=== PATIENT | female | born 1965 | race African-American/Black ===

== ENCOUNTER 2018-06-10 15:07 | Outpatient (CLI) | payer MEDICARE, MEDICAID | END 2018-06-10 15:08 | disposition home or self-care (01) | LOC: BICULT 15:07 | PROVIDERS: ATTEND Family Medicine | DX: E04.2 Nontoxic multinodular goiter (principal) | CPT/HCPCS: 76536 ==

== ENCOUNTER 2020-12-30 13:32 | Emergency (ER) | payer MEDICARE, MEDICAID ==
[2020-12-30 14:09] LABS: Hemoglobin 11.4 g/dL (12.0-16.0); Mean Corpuscular HGB CONC 32.4 g/dL (32.0-36.0); Mean Corpuscular Hemoglobin 25.5 pg (27.0-31.0); Mean Corpuscular Volume 78.6 fL (78.0-98.0); Mean Platelet Volume 10.1 fL (7.4-10.4); Platelet Count 185 thou/uL (130-400); RBC Distribution Width 14.8 % (11.5-14.5); Red Blood Cell (RBC) Count 4.48 mill/uL (4.20-5.40); White Blood Cell (WBC) Count 28.7 thou/uL (4.8-10.8)
[2020-12-30 14:23] LABS: Band 21 % (5-11); Hypochromia SLIGHT = 6-15 cells (100X) (0-5/hpf); Lymphocytes 3 % (21-51); MDiff Complete? YES; Metamyelocyte 6 % (0-0); Monocytes 3 % (0-10); Myelocyte 2 % (0-0); Neutrophil 65 % (42-75); Ovalocytes SLIGHT = 2-5 cells (100X) (0-1/hpf); Platelet Morphology Comment Appears Adequate; Target Cells SLIGHT = 2-5 cells (100X) (0-1/hpf); Vacuoles SLIGHT
--- NOTE | 2020-12-30 14:41 | RAD ---
EXAM: Single view of the chest HISTORY: Fever and vomiting COMPARISON: 11/03/2014 FINDINGS: Single view of the chest shows a normal sized cardiomediastinal silhouette. Increased inte rstitial lung markings are present. There is no evidence of consolidation, mass, or pleural effusion. Hardware and scoliotic curvature is seen in the spine. IMPRESSION: No evidence of acute cardiopulmonary disease
[2020-12-30] MEDS ORDERED: Cefepime 2 GM VIAL ONE (14:42)
[2020-12-30] MEDS ORDERED: Vancomycin 1 GM/200 ML BAG ONE ×3 (14:42→14:43)
[2020-12-30 15:35] LABS: Chloride 108 mmol/L (98-107); Sodium 142 mmol/L (136-145)
[2020-12-30 15:37] LABS: Globulin 3.2 g/dL (2.4-3.5); Glucose 97 mg/dL (70-105); Protein, Total 6.2 g/dL (6.0-8.3)
[2020-12-30 15:38] LABS: Anion Gap 23 mmol/L (10-20); Bilirubin, Total 0.8 mg/dL (0.2-1.2); Carbon Dioxide 14 mmol/L (22-29)
[2020-12-30 15:40] LABS: Alkaline Phosphatase 146 U/L (40-110); Calc. Creatinine Clearance 0 mL/min (70-130)
[2020-12-30 15:41] LABS: BUN (Urea Nitrogen) 43 mg/dL (9.8-20.1)
[2020-12-30 15:42] LABS: ALT (SGPT) 87 U/L (8-55); AST (SGOT) 81 U/L (5-34); Magnesium 1.6 mg/dL (1.6-2.6)
[2020-12-30] MEDS ORDERED: Norepinephrine 8 MG/0.9% NS 250 ML ONE (15:42)
[2020-12-30 15:43] LABS: CK (CPK) 1057 U/L (29-168)
[2020-12-30 16:25] LABS: Bilirubin Negative (Negative); Blood, Urine 3+ (Negative); Clarity Extra Turbid (Clear); Glucose, Urine (Dipstick) Normal (Negative); Ketone, Urine Negative (Negative); Leukocyte 500 Leu/uL (Negative); Nitrite Negative (Negative); Protein, Urine (Dipstick) 100 mg/dL (Neg-Trace); RBC/HPF Greater than 50 HPF (0-3); Specific Gravity, Urine 1.023 (1.002-1.036); Squamous Epithelial 0-3 HPF (0-3); Urobilinogen 3 mg/dL (Less than 2); WBC/HPF Greater than 50 HPF (0-3); pH, Urine 5.5 (5.0-9.0)
[2020-12-30 16:27] LABS: Bacteria/HPF 2+ HPF (None Seen)
[2020-12-30 17:21] LABS: SARS-CoV-2 NAA Rapid Test Not Detected (NotDetected)
== END 2020-12-30 18:32 | disposition short-term general hospital (02) ==
LOC: ERS 13:32
DX: A41.9 Sepsis, unspecified organism (principal); N39.0 Urinary tract infection, site not specified; R65.21 Severe sepsis with septic shock; G93.40 Encephalopathy, unspecified; I10 Essential (primary) hypertension
CPT/HCPCS: 0240U; 36415; 36416; 71045; 80053; 81003; 81015; 82550; 82553; 83605; 83735; 84443; 84484; 85025; 87040; 87086; J0692; J3370

== ENCOUNTER 2021-02-17 12:36 | Outpatient (CLI) | payer MEDICARE, MEDICAID ==
[2021-02-18 02:10] LABS: SARS-CoV-2 PCR by NAA Not Detected (NotDetected)
== END 2021-02-17 12:37 | disposition home or self-care (01) ==
LOC: LABBT 12:36
PROVIDERS: ATTEND Family Medicine
DX: Z01.812 Encounter for preprocedural laboratory examination (principal); Z20.822 Contact with and (suspected) exposure to COVID-19
CPT/HCPCS: U0003; U0005; 87635

== ENCOUNTER 2021-02-19 13:05 | Outpatient (CLI) | payer MEDICARE, MEDICAID | END 2021-02-19 13:06 | disposition home or self-care (01) | PROVIDERS: ATTEND Family Medicine | DX: J69.0 Pneumonitis due to inhalation of food and vomit (principal); R13.10 Dysphagia, unspecified; R63.3 Feeding difficulties; G80.9 Cerebral palsy, unspecified | CPT/HCPCS: 74230 ==

== ENCOUNTER 2022-08-03 12:11 | Inpatient (IN) | payer MEDICARE, MEDICAID ==
[~2022-08-03 12:11] MED LIST: GASTROGRAFIN 30 ML BOT ONE
[2022-08-03 13:11] LABS: Hemoglobin 13.2 g/dL (12.0-16.0); Mean Corpuscular HGB CONC 31.9 g/dL (32.0-36.0); Mean Corpuscular Volume 81.7 fL (78.0-98.0); Mean Platelet Volume 11.6 fL (7.4-10.4); Platelet Count 140 thou/uL (130-400); RBC Distribution Width 14.1 % (11.5-14.5); Red Blood Cell (RBC) Count 5.06 mill/uL (4.20-5.40); White Blood Cell (WBC) Count 7.7 thou/uL (4.8-10.8)
[2022-08-03 13:28] LABS: Band 16 % (5-11); Large Platelets SLIGHT; Lymphocytes 2 % (21-51); MDiff Complete? YES; Monocytes 1 % (0-10); Neutrophil 81 % (42-75); Platelet Morphology Comment Appears Adequate; Polychromasia SLIGHT = 2-3 cells (100X) (0-2/hpf)
[2022-08-03 13:32] LABS: Bacteria/HPF 4+ HPF (None Seen); Bilirubin Negative (Negative); Blood, Urine 3+ (Negative); Clarity Turbid (Clear); Glucose, Urine (Dipstick) Normal (Negative); Ketone, Urine Negative (Negative); Leukocyte 250 Leu/uL (Negative); Nitrite Negative (Negative); Protein, Urine (Dipstick) 70 mg/dL (Neg-Trace); RBC/HPF Greater than 50 HPF (0-3); Specific Gravity, Urine 1.014 (1.002-1.036); Squamous Epithelial 0-3 HPF (0-3); Urobilinogen Normal mg/dL (Less than 2); WBC/HPF 21-50 HPF (0-3); pH, Urine 5.5 (5.0-9.0)
[2022-08-03 13:33] LABS: Transitional Epithelial 0-3 HPF (None Seen)
[2022-08-03] MEDS ORDERED: Vancomycin 1 GM/200 ML BAG ONE (14:06)
[2022-08-03 14:32] LABS: ALT (SGPT) 154 U/L (8-55); AST (SGOT) 101 U/L (5-34); Albumin 2.9 g/dL (3.5-5.0); Alkaline Phosphatase 414 U/L (40-110); Anion Gap 17 mmol/L (10-20); BUN (Urea Nitrogen) 55 mg/dL (9.8-20.1); Bilirubin, Total 1.6 mg/dL (0.2-1.2); CK (CPK) 41 U/L (29-168); Calc. Creatinine Clearance 0 mL/min (70-130); Carbon Dioxide 26 mmol/L (22-29); Chloride 106 mmol/L (98-107); Estimated GFR 20; Glucose 141 mg/dL (70-105); Lipase 37 U/L (8-78); Protein, Total 5.9 g/dL (6.0-8.3); Sodium 146 mmol/L (136-145)
[2022-08-03 14:36] LABS: Potassium 2.6 mmol/L (3.5-5.1)
[2022-08-03] MEDS ORDERED: Potassium Chloride 20 MEQ TAB ONE (14:57)
[2022-08-03 16:10] LABS: Lactic Acid 1.4 mmol/L (0.5-2.2)
[2022-08-03 17:43] LABS: Magnesium 1.7 mg/dL (1.6-2.6)
[2022-08-03] MEDS ORDERED: Potassium Chloride 20 MEQ in Premix Bag 1 BAG IVPB SCH (18:00)
[2022-08-03 18:03] LABS: SARS-CoV-2 NAA Rapid Test Not Detected (NotDetected)
[2022-08-03 18:09] LABS: HBCM Index 0.05 S/CO (0-0.79); HBSAg Index 0.28 S/CO (0-0.99); Hep A IgM AB Non-Reactive (NonReactive); Hep A IgM S/CO 0.18 S/CO (0-0.79); Hep B Surf Ag Non-Reactive S/CO (NonReactive); Hep C IgG Ab Non-Reactive (NonReactive); Hep C Index 0.13 S/CO (0-0.79); Hepatitis B Core IgM Abs Non-Reactive (NonReactive)
[2022-08-03] MEDS ORDERED: Magnesium 2 GM/50 ML(in water) 2 GM in Premix Bag 1 BAG IVPB SCH (18:30)
[2022-08-03 20:18] LABS: ALT (SGPT) 158 U/L (8-55); AST (SGOT) 97 U/L (5-34); Albumin 2.8 g/dL (3.5-5.0); Alkaline Phosphatase 411 U/L (40-110); Anion Gap 23 mmol/L (10-20); BUN (Urea Nitrogen) 45 mg/dL (9.8-20.1); Bilirubin, Total 1.7 mg/dL (0.2-1.2); Calc. Creatinine Clearance 0 mL/min (70-130); Calcium 5.7 mg/dL (7.8-10.44); Carbon Dioxide 14 mmol/L (22-29); Chloride 110 mmol/L (98-107); Estimated GFR 24; Globulin 2.6 g/dL (2.4-3.5); Glucose 140 mg/dL (70-105); Potassium 2.9 mmol/L (3.5-5.1); Protein, Total 5.4 g/dL (6.0-8.3); Sodium 144 mmol/L (136-145)
[2022-08-03] MEDS ORDERED: Potassium Chloride 20 MEQ TAB PER TUBE SCH (20:45)
[2022-08-03] MEDS ORDERED: Fentanyl 100 MCG/2 ML VIAL ONE ×2 (21:30→23:32)
[2022-08-03] MEDS: Polyethylene Glycol 3350 17 GM Packet PER TUBE SCH (21:32)
[2022-08-03] MEDS: Senokot S 8.6-50 MG TAB PER TUBE SCH (21:32)
[2022-08-03] MEDS ORDERED: Rocuronium Bromide 10 MG/ML (10ML VIAL) ONE (22:00)
[2022-08-03] MEDS ORDERED: Ondansetron ORAL SOLN. 4 MG/5 ML UDCUP ONE (22:00)
[2022-08-03] MEDS ORDERED: Lidocaine 1% MPF 2 ML VIAL ONE (22:00)
[2022-08-03] MEDS ORDERED: NEOSTIGMINE 3 MG/3 ML SYR 3 MG/3 ML SYRINGE ONE (22:00)
[2022-08-03] MEDS ORDERED: Phenylephrine 10 MG/ML VIAL ONE (22:00)
[2022-08-03] MEDS ORDERED: PROPOFOL 200 MG/20 ML VIAL ONE (22:00)
[2022-08-03] MEDS ORDERED: ePHEDrine 50 MG/ML VIAL ONE (22:00)
[2022-08-03] MEDS ORDERED: Glycopyrrolate 0.2 MG/ML 5 ML SYRINGE ONE (22:00)
[2022-08-03] MEDS ORDERED: Iopamidol 15 ML ONE (22:20)
[2022-08-03] MEDS ORDERED: Vancomycin 1 GM in Premix Bag 1 BAG IVPB SCH (22:30)
[2022-08-03] MEDS ORDERED: B & O ONE (22:54)
[2022-08-03] MEDS ORDERED: Ondansetron HCl/PF 4 MG/2 ML Vial IVP PRN (23:33)
[2022-08-03] MEDS ORDERED: Promethazine HCl 25 MG/ML VIAL IVPB PRN (23:33)
[2022-08-03] MEDS ORDERED: Promethazine HCl 25 MG/ML VIAL IM PRN (23:33)
[2022-08-04] MEDS ORDERED: Acetaminophen 325 MG TAB PER TUBE PRN (01:23)
[2022-08-04] MEDS ORDERED: Acetaminophen 500 MG TAB PER TUBE PRN (02:42)
[2022-08-04] MEDS ORDERED: Lactated Ringer's 250 ML IV SCH (03:30)
[2022-08-04 04:26] LABS: ALT (SGPT) 107 U/L (8-55); AST (SGOT) 52 U/L (5-34); Albumin 2.4 g/dL (3.5-5.0); Alkaline Phosphatase 443 U/L (40-110); Anion Gap 18 mmol/L (10-20); BUN (Urea Nitrogen) 44 mg/dL (9.8-20.1); Bilirubin, Total 1.9 mg/dL (0.2-1.2); Calc. Creatinine Clearance 17 mL/min (70-130); Carbon Dioxide 18 mmol/L (22-29); Chloride 112 mmol/L (98-107); Estimated GFR 22; Globulin 2.6 g/dL (2.4-3.5); Glucose 97 mg/dL (70-105); Magnesium 2.1 mg/dL (1.6-2.6); Potassium 4.1 mmol/L (3.5-5.1); Sodium 144 mmol/L (136-145)
[2022-08-04 04:33] LABS: Calcium 5.7 mg/dL (7.8-10.44)
[2022-08-04] MEDS: NOREPINEPHRINE 8 MG/250 ML-D5W 250 ML IVPB SCH ×2 (04:36→12:35)
[2022-08-04 04:49] LABS: Actual Bicarbonate (HCO3a) 18.4 mEq/L (22-28); Base Excess (BEa) -7.1 mEq/L (-2.0 to +3.0); CO2 Tension 36.9 mmHg (35.0-45.0); Calcium, Ionized (arterial) 0.81 mmol/L (1.12-1.30); Carboxyhemoglobin (COHb) 0.3 gm% (0.0-3.0); Potassium - ABG Lab 3.64 mmol/L (3.70-5.30); pH, Arterial 7.32 (7.35-7.45)
[2022-08-04 04:51] LABS: O2 Tension (PaO2), arterial 46.7 mmHg (80.0-100.0)
[2022-08-04 04:52] LABS: ALV-art Gradient 263.675 mmHg (0-20); Puncture Site RRA
[2022-08-04] MEDS ORDERED: Electrolyte Replacement Protocol 1 EACH IVPB PRN (05:04)
[2022-08-04] MEDS ORDERED: Lactated Ringer's 1,000 ML IV SCH ×3 (05:15→11:45)
[2022-08-04 05:34] LABS: Band 31 % (5-11); Hemoglobin 9.9 g/dL (12.0-16.0); Large Platelets SLIGHT; Lymphocytes 2 % (21-51); MDiff Complete? YES; Mean Corpuscular Volume 83.9 fL (78.0-98.0); Metamyelocyte 8 % (0-0); Monocytes 6 % (0-10); Myelocyte 3 % (0-0); Neutrophil 50 % (42-75); Platelet Count 75 thou/uL (130-400); Platelet Morphology Comment Appears Decreased; RBC Distribution Width 14.2 % (11.5-14.5); Red Blood Cell (RBC) Count 3.81 mill/uL (4.20-5.40); White Blood Cell (WBC) Count 10.9 thou/uL (4.8-10.8)
[2022-08-04] MEDS ORDERED: Meropenem 500 MG in Sodium Chloride 0.9% 100 ML IVPB SCH (06:15)
[2022-08-04] MEDS ORDERED: Meropenem 1 GM in Sodium Chloride 0.9% 100 ML IVPB SCH (06:45)
[2022-08-04] MEDS ORDERED: Calcium Gluconate 100 MG/ML 10 ML IVPB SCH (09:00)
[2022-08-04] MEDS: Polyethylene Glycol 3350 17 GM Packet PER TUBE SCH ×2 (09:13→20:32)
[2022-08-04] MEDS: Enoxaparin Sodium 30 MG/0.3 ML SYRINGE SC SCH (09:13)
[2022-08-04] MEDS: Senokot S 8.6-50 MG TAB PER TUBE SCH ×2 (09:14→20:33)
[2022-08-04] MEDS ORDERED: CALCIUM GLUC 1GM/NS 50ML 1 GM in Premix Bag 1 BAG IVPB SCH ×2 (09:30→12:30)
[2022-08-04] MEDS ORDERED: Vancomycin 1 GM in Premix Bag 1 BAG IVPB SCH ×2 (12:00→23:00)
[2022-08-04 15:03] LABS: Actual Bicarbonate (HCO3a) 16.9 mEq/L (22-28); CO2 Tension 32.6 mmHg (35.0-45.0); Calcium, Ionized (arterial) 0.93 mmol/L (1.12-1.30); Carboxyhemoglobin (COHb) 0.3 gm% (0.0-3.0); Hemoglobin (Hb) 10.2 g/dL (12.0-16.0); Potassium - ABG Lab 3.62 mmol/L (3.70-5.30); pH, Arterial 7.33 (7.35-7.45)
[2022-08-04 15:04] LABS: Puncture Site LBA
[2022-08-04] MEDS ORDERED: Furosemide 40 MG/4 ML VIAL SLOW IVP SCH (15:30)
[2022-08-04] MEDS: Lactated Ringer's 1,000 ML IV SCH (15:40)
[2022-08-04] MEDS: Meropenem 500 MG in Sodium Chloride 0.9% 100 ML IVPB SCH (17:15)
[2022-08-05] MEDS: Meropenem 500 MG in Sodium Chloride 0.9% 100 ML IVPB SCH ×2 (04:04→15:16)
[2022-08-05 05:15] LABS: Hemoglobin 9.2 g/dL (12.0-16.0); Mean Corpuscular HGB CONC 31.9 g/dL (32.0-36.0); Mean Corpuscular Hemoglobin 26.3 pg (27.0-31.0); Mean Corpuscular Volume 82.4 fL (78.0-98.0); Mean Platelet Volume 11.7 fL (7.4-10.4); Platelet Count 69 thou/uL (130-400); RBC Distribution Width 14.4 % (11.5-14.5); Red Blood Cell (RBC) Count 3.48 mill/uL (4.20-5.40)
[2022-08-05 05:18] LABS: Band 44 % (5-11); Lymphocytes 2 % (21-51); MDiff Complete? YES; Metamyelocyte 5 % (0-0); Monocytes 3 % (0-10); Neutrophil 46 % (42-75); Platelet Morphology Comment Appears Decreased; Toxic Granulation SLIGHT; Vacuoles SLIGHT
[2022-08-05 05:24] LABS: ALT (SGPT) 86 U/L (8-55); AST (SGOT) 39 U/L (5-34); Albumin 2.6 g/dL (3.5-5.0); Alkaline Phosphatase 276 U/L (40-110); Anion Gap 20 mmol/L (10-20); BUN (Urea Nitrogen) 41 mg/dL (9.8-20.1); Calc. Creatinine Clearance 15 mL/min (70-130); Calcium 7.2 mg/dL (7.8-10.44); Carbon Dioxide 18 mmol/L (22-29); Chloride 107 mmol/L (98-107); Estimated GFR 19; Globulin 2.9 g/dL (2.4-3.5); Glucose 75 mg/dL (70-105); Potassium 3.5 mmol/L (3.5-5.1); Protein, Total 5.5 g/dL (6.0-8.3); Sodium 141 mmol/L (136-145)
[2022-08-05] MEDS ORDERED: Electrolyte Replacement Protocol 1 EACH IVPB PRN (07:39)
[2022-08-05] MEDS: Polyethylene Glycol 3350 17 GM Packet PER TUBE SCH ×2 (09:18→20:25)
[2022-08-05] MEDS: Senokot S 8.6-50 MG TAB PER TUBE SCH ×2 (09:18→20:25)
[2022-08-05] MEDS: Enoxaparin Sodium 30 MG/0.3 ML SYRINGE SC SCH ×2 (09:36→10:57)
[2022-08-05] MEDS: Lactated Ringer's 1,000 ML IV SCH (15:22)
[2022-08-05] MEDS ORDERED: Dextrose 50% Abboject 50 ML SYRINGE SLOW IVP PRN (20:47)
[2022-08-05] MEDS ORDERED: Dextrose 5% in Water 1,000 ML IV PRN (20:47)
[2022-08-05] MEDS: Ondansetron PF 4 MG/2 ML Vial IVP PRN (21:10)
[2022-08-06] MEDS: Meropenem 500 MG in Sodium Chloride 0.9% 100 ML IVPB SCH (03:42)
[2022-08-06 05:20] LABS: ALT (SGPT) 64 U/L (8-55); AST (SGOT) 31 U/L (5-34); Albumin 2.5 g/dL (3.5-5.0); Alkaline Phosphatase 296 U/L (40-110); Anion Gap 14 mmol/L (10-20); BUN (Urea Nitrogen) 51 mg/dL (9.8-20.1); Bilirubin, Total 1.6 mg/dL (0.2-1.2); Calc. Creatinine Clearance 11 mL/min (70-130); Calcium 7.9 mg/dL (7.8-10.44); Carbon Dioxide 24 mmol/L (22-29); Chloride 110 mmol/L (98-107); Estimated GFR 16; Globulin 2.7 g/dL (2.4-3.5); Glucose 87 mg/dL (70-105); Mean Corpuscular HGB CONC 31.4 g/dL (32.0-36.0); Mean Corpuscular Hemoglobin 25.5 pg (27.0-31.0); Mean Corpuscular Volume 81.2 fL (78.0-98.0); Mean Platelet Volume 11.8 fL (7.4-10.4); Platelet Count 74 thou/uL (130-400); Protein, Total 5.2 g/dL (6.0-8.3); RBC Distribution Width 14.5 % (11.5-14.5); Red Blood Cell (RBC) Count 3.53 mill/uL (4.20-5.40); Sodium 145 mmol/L (136-145); White Blood Cell (WBC) Count 43.2 thou/uL (4.8-10.8)
[2022-08-06 06:41] LABS: Band 31 % (5-11); Lymphocytes 2 % (21-51); MDiff Complete? YES; Monocytes 4 % (0-10); Neutrophil 63 % (42-75); Platelet Morphology Comment Appears Decreased
[2022-08-06] MEDS ORDERED: Lactated Ringer's 1,000 ML IV SCH (06:45)
[2022-08-06] MEDS ORDERED: Potassium Chloride 20 MEQ TAB PER TUBE SCH (07:00)
[2022-08-06] MEDS: Polyethylene Glycol 3350 17 GM Packet PER TUBE SCH ×2 (09:49→20:19)
[2022-08-06] MEDS: Enoxaparin Sodium 30 MG/0.3 ML SYRINGE SC SCH (09:49)
[2022-08-06] MEDS: Senokot S 8.6-50 MG TAB PER TUBE SCH ×2 (09:49→20:19)
[2022-08-06 14:12] LABS: Bacteria/HPF 4+ HPF (None Seen); Bilirubin Negative (Negative); Blood, Urine 3+ (Negative); Clarity Extra Turbid (Clear); Glucose, Urine (Dipstick) Normal (Negative); Ketone, Urine Negative (Negative); Leukocyte 500 Leu/uL (Negative); Nitrite Negative (Negative); Protein, Urine (Dipstick) 20 mg/dL (Neg-Trace); RBC/HPF Greater than 50 HPF (0-3); Renal Epithelial 0-3 HPF (None Seen); Specific Gravity, Urine 1.009 (1.002-1.036); Squamous Epithelial 0-3 HPF (0-3); Urobilinogen Normal mg/dL (Less than 2); WBC/HPF Greater than 50 HPF (0-3)
[2022-08-06] MEDS: Lactated Ringer's 1,000 ML IV SCH ×2 (14:17→20:16)
[2022-08-07 04:49] LABS: ALT (SGPT) 61 U/L (8-55); AST (SGOT) 45 U/L (5-34); Albumin 2.3 g/dL (3.5-5.0); Alkaline Phosphatase 278 U/L (40-110); Anion Gap 11 mmol/L (10-20); BUN (Urea Nitrogen) 48 mg/dL (9.8-20.1); Bilirubin, Total 1.4 mg/dL (0.2-1.2); Calc. Creatinine Clearance 14 mL/min (70-130); Calcium 8.4 mg/dL (7.8-10.44); Carbon Dioxide 29 mmol/L (22-29); Chloride 113 mmol/L (98-107); Estimated GFR 20; Globulin 2.7 g/dL (2.4-3.5); Glucose 181 mg/dL (70-105); Potassium 3.6 mmol/L (3.5-5.1); Sodium 149 mmol/L (136-145)
[2022-08-07 05:46] LABS: Hemoglobin 9.1 g/dL (12.0-16.0); MDiff Complete? YES; Mean Corpuscular HGB CONC 31.7 g/dL (32.0-36.0); Mean Corpuscular Hemoglobin 25.9 pg (27.0-31.0); Mean Corpuscular Volume 81.7 fL (78.0-98.0); Platelet Count 79 thou/uL (130-400); RBC Distribution Width 14.1 % (11.5-14.5); White Blood Cell (WBC) Count 35.7 thou/uL (4.8-10.8)
[2022-08-07 05:47] LABS: Band 27 % (5-11); Hypochromia SLIGHT = 6-15 cells (100X) (0-5/hpf); Lymphocytes 3 % (21-51); Metamyelocyte 3 % (0-0); Neutrophil 67 % (42-75); Platelet Morphology Comment Appears Decreased; Polychromasia SLIGHT = 2-3 cells (100X) (0-2/hpf); Target Cells MODERATE= 6-15 cells (100X) (0-1/hpf); Tear Drops SLIGHT = 2-5 cells (100X) (0-1/hpf)
[2022-08-07] MEDS: Polyethylene Glycol 3350 17 GM Packet PER TUBE SCH ×2 (08:59→21:36)
[2022-08-07] MEDS: Senokot S 8.6-50 MG TAB PER TUBE SCH ×2 (08:59→21:36)
[2022-08-07] MEDS: Enoxaparin Sodium 30 MG/0.3 ML SYRINGE SC SCH (09:00)
[2022-08-07] MEDS: Lactated Ringer's 1,000 ML IV SCH (09:10)
[2022-08-08 05:07] LABS: ALT (SGPT) 75 U/L (8-55); AST (SGOT) 58 U/L (5-34); Albumin 2.4 g/dL (3.5-5.0); Alkaline Phosphatase 268 U/L (40-110); Anion Gap 12 mmol/L (10-20); BUN (Urea Nitrogen) 47 mg/dL (9.8-20.1); Calc. Creatinine Clearance 16 mL/min (70-130); Calcium 8.7 mg/dL (7.8-10.44); Carbon Dioxide 34 mmol/L (22-29); Chloride 107 mmol/L (98-107); Estimated GFR 25; Globulin 2.8 g/dL (2.4-3.5); Glucose 209 mg/dL (70-105); Potassium 3.5 mmol/L (3.5-5.1); Protein, Total 5.2 g/dL (6.0-8.3); Sodium 149 mmol/L (136-145)
[2022-08-08 05:23] LABS: Band 12 % (5-11); Hemoglobin 9.8 g/dL (12.0-16.0); Hypochromia SLIGHT = 6-15 cells (100X) (0-5/hpf); Lymphocytes 13 % (21-51); MDiff Complete? YES; Mean Corpuscular Hemoglobin 26.3 pg (27.0-31.0); Mean Platelet Volume 11.4 fL (7.4-10.4); Monocytes 10 % (0-10); Neutrophil 65 % (42-75); Platelet Count 94 thou/uL (130-400); Platelet Morphology Comment Appears Decreased; Red Blood Cell (RBC) Count 3.74 mill/uL (4.20-5.40); White Blood Cell (WBC) Count 21.1 thou/uL (4.8-10.8)
[2022-08-08] MEDS: Enoxaparin Sodium 30 MG/0.3 ML SYRINGE SC SCH (10:11)
[2022-08-08] MEDS: Polyethylene Glycol 3350 17 GM Packet PER TUBE SCH ×2 (10:11→20:23)
[2022-08-08] MEDS: Senokot S 8.6-50 MG TAB PER TUBE SCH ×2 (10:11→20:22)
[2022-08-08 13:14] LABS: Fungus Stain Final report (.)
[2022-08-08] MEDS: Ondansetron PF 4 MG/2 ML Vial IVP PRN (21:45)
[2022-08-09 05:30] LABS: ALT (SGPT) 90 U/L (8-55); AST (SGOT) 68 U/L (5-34); Albumin 2.6 g/dL (3.5-5.0); Alkaline Phosphatase 308 U/L (40-110); Anion Gap 14 mmol/L (10-20); BUN (Urea Nitrogen) 43 mg/dL (9.8-20.1); Bilirubin, Total 0.9 mg/dL (0.2-1.2); Calc. Creatinine Clearance 19 mL/min (70-130); Calcium 8.8 mg/dL (7.8-10.44); Carbon Dioxide 34 mmol/L (22-29); Chloride 95 mmol/L (98-107); Estimated GFR 30; Globulin 3.5 g/dL (2.4-3.5); Glucose 95 mg/dL (70-105); Potassium 3.6 mmol/L (3.5-5.1); Protein, Total 6.1 g/dL (6.0-8.3); Sodium 139 mmol/L (136-145)
[2022-08-09 05:38] LABS: Band 15 % (5-11); Hemoglobin 10.7 g/dL (12.0-16.0); Lymphocytes 8 % (21-51); MDiff Complete? YES; Mean Corpuscular Hemoglobin 26.3 pg (27.0-31.0); Mean Corpuscular Volume 82.1 fL (78.0-98.0); Mean Platelet Volume 10.8 fL (7.4-10.4); Metamyelocyte 7 % (0-0); Monocytes 4 % (0-10); Neutrophil 66 % (42-75); Platelet Count 145 thou/uL (130-400); Platelet Morphology Comment Appears Adequate; RBC Distribution Width 13.8 % (11.5-14.5); RBC Morphology Normal; Red Blood Cell (RBC) Count 4.09 mill/uL (4.20-5.40); White Blood Cell (WBC) Count 22.1 thou/uL (4.8-10.8)
[2022-08-09] MEDS: Polyethylene Glycol 3350 17 GM Packet PER TUBE SCH ×2 (09:49→22:10)
[2022-08-09] MEDS: Senokot S 8.6-50 MG TAB PER TUBE SCH ×2 (09:49→22:11)
[2022-08-09] MEDS: Enoxaparin Sodium 30 MG/0.3 ML SYRINGE SC SCH (09:49)
[2022-08-09] MEDS ORDERED: Mineral Oil ENEMA PR SCH (12:00)
[2022-08-10] MEDS: Ondansetron PF 4 MG/2 ML Vial IVP PRN (02:15)
[2022-08-10 05:06] LABS: ALT (SGPT) 70 U/L (8-55); AST (SGOT) 42 U/L (5-34); Albumin 2.8 g/dL (3.5-5.0); Alkaline Phosphatase 295 U/L (40-110); Anion Gap 13 mmol/L (10-20); BUN (Urea Nitrogen) 42 mg/dL (9.8-20.1); Bilirubin, Total 0.7 mg/dL (0.2-1.2); Calc. Creatinine Clearance 19 mL/min (70-130); Calcium 8.8 mg/dL (7.8-10.44); Carbon Dioxide 35 mmol/L (22-29); Chloride 92 mmol/L (98-107); Estimated GFR 31; Globulin 3.3 g/dL (2.4-3.5); Glucose 117 mg/dL (70-105); Potassium 3.1 mmol/L (3.5-5.1); Protein, Total 6.1 g/dL (6.0-8.3); Sodium 137 mmol/L (136-145)
[2022-08-10 05:40] LABS: Band 8 % (5-11); Hemoglobin 10.8 g/dL (12.0-16.0); Hypochromia SLIGHT = 6-15 cells (100X) (0-5/hpf); Lymphocytes 8 % (21-51); MDiff Complete? YES; Mean Corpuscular HGB CONC 31.9 g/dL (32.0-36.0); Mean Corpuscular Volume 81.7 fL (78.0-98.0); Mean Platelet Volume 10.5 fL (7.4-10.4); Monocytes 15 % (0-10); Neutrophil 69 % (42-75); Platelet Count 210 thou/uL (130-400); Platelet Morphology Comment Appears Adequate; RBC Distribution Width 13.8 % (11.5-14.5); Red Blood Cell (RBC) Count 4.14 mill/uL (4.20-5.40); White Blood Cell (WBC) Count 24.4 thou/uL (4.8-10.8)
[2022-08-10] MEDS ORDERED: Potassium Chloride 20 MEQ TAB PER TUBE SCH (08:00)
[2022-08-10] MEDS: Polyethylene Glycol 3350 17 GM Packet PER TUBE SCH ×2 (09:19→22:19)
[2022-08-10] MEDS: Enoxaparin Sodium 30 MG/0.3 ML SYRINGE SC SCH (09:19)
[2022-08-10] MEDS: Senokot S 8.6-50 MG TAB PER TUBE SCH ×2 (09:20→22:19)
[2022-08-10 14:13] LABS: CA Oxalate Monohydrate 70 % (.); Color Tan (.); Stone Weight 36 mg (.)
[2022-08-11 04:46] LABS: ALT (SGPT) 60 U/L (8-55); AST (SGOT) 43 U/L (5-34); Albumin 2.9 g/dL (3.5-5.0); Alkaline Phosphatase 286 U/L (40-110); Anion Gap 12 mmol/L (10-20); BUN (Urea Nitrogen) 37 mg/dL (9.8-20.1); Bilirubin, Total 0.6 mg/dL (0.2-1.2); Calc. Creatinine Clearance 19 mL/min (70-130); Calcium 8.8 mg/dL (7.8-10.44); Carbon Dioxide 36 mmol/L (22-29); Chloride 95 mmol/L (98-107); Estimated GFR 31; Globulin 3.6 g/dL (2.4-3.5); Glucose 96 mg/dL (70-105); Potassium 3.2 mmol/L (3.5-5.1); Protein, Total 6.5 g/dL (6.0-8.3); Sodium 140 mmol/L (136-145)
[2022-08-11 05:21] LABS: Band 27 % (5-11); Elliptocytes SLIGHT = 2-5 cells (100X) (0-1/hpf); Hemoglobin 10.5 g/dL (12.0-16.0); Lymphocytes 10 % (21-51); MDiff Complete? YES; Macrocytosis MODERATE=16-30 cells (100X) (0-5/hpf); Mean Corpuscular HGB CONC 32.9 g/dL (32.0-36.0); Mean Corpuscular Hemoglobin 26.6 pg (27.0-31.0); Mean Corpuscular Volume 80.7 fL (78.0-98.0); Mean Platelet Volume 9.4 fL (7.4-10.4); Metamyelocyte 3 % (0-0); Monocytes 9 % (0-10); Myelocyte 1 % (0-0); Neutrophil 50 % (42-75); Ovalocytes MODERATE= 6-15 cells (100X) (0-1/hpf); Platelet Count 278 thou/uL (130-400); Platelet Morphology Comment Appears Adequate; RBC Distribution Width 13.8 % (11.5-14.5); Red Blood Cell (RBC) Count 3.93 mill/uL (4.20-5.40); Target Cells SLIGHT = 2-5 cells (100X) (0-1/hpf); White Blood Cell (WBC) Count 20.1 thou/uL (4.8-10.8)
[2022-08-11] MEDS ORDERED: Potassium Chloride 20 MEQ TAB PER TUBE SCH (08:00)
[2022-08-11] MEDS ORDERED: Polyethylene Glycol 3350 17 GM Packet PER TUBE SCH ×2 (09:00→13:30)
[2022-08-11] MEDS ORDERED: GoLYTELY 4,000 ml Bottle PER TUBE SCH (09:15)
[2022-08-11] MEDS ORDERED: Mineral Oil ENEMA PR SCH (09:15)
[2022-08-11] MEDS: Senokot S 8.6-50 MG TAB PER TUBE SCH ×2 (09:30→22:43)
[2022-08-11] MEDS: Enoxaparin Sodium 30 MG/0.3 ML SYRINGE SC SCH (09:30)
[2022-08-11] MEDS: Polyethylene Glycol 3350 17 GM Packet PER TUBE SCH ×2 (09:30→22:43)
[2022-08-12 05:16] LABS: Band 21 % (5-11); Hemoglobin 10.2 g/dL (12.0-16.0); Hypochromia SLIGHT = 6-15 cells (100X) (0-5/hpf); Lymphocytes 7 % (21-51); MDiff Complete? YES; Mean Corpuscular HGB CONC 32.3 g/dL (32.0-36.0); Mean Corpuscular Hemoglobin 26.3 pg (27.0-31.0); Mean Corpuscular Volume 81.2 fL (78.0-98.0); Mean Platelet Volume 9.4 fL (7.4-10.4); Metamyelocyte 1 % (0-0); Monocytes 12 % (0-10); Neutrophil 59 % (42-75); Platelet Count 393 thou/uL (130-400); Platelet Morphology Comment Appears Adequate; RBC Distribution Width 14.5 % (11.5-14.5); Red Blood Cell (RBC) Count 3.88 mill/uL (4.20-5.40); White Blood Cell (WBC) Count 18.3 thou/uL (4.8-10.8)
[2022-08-12 05:24] LABS: AST (SGOT) 43 U/L (5-34); Anion Gap 19 mmol/L (10-20); BUN (Urea Nitrogen) 27 mg/dL (9.8-20.1); Bilirubin, Total 0.8 mg/dL (0.2-1.2); Calc. Creatinine Clearance 19 mL/min (70-130); Carbon Dioxide 25 mmol/L (22-29); Chloride 106 mmol/L (98-107); Estimated GFR 31; Globulin 3.6 g/dL (2.4-3.5); Glucose 73 mg/dL (70-105); Potassium 4.7 mmol/L (3.5-5.1); Protein, Total 6.6 g/dL (6.0-8.3); Sodium 145 mmol/L (136-145)
[2022-08-12 05:43] LABS: ALT (SGPT) 57 U/L (8-55)
[2022-08-12 06:04] LABS: Alkaline Phosphatase 286 U/L (40-110)
[2022-08-12] MEDS: Enoxaparin Sodium 30 MG/0.3 ML SYRINGE SC SCH (09:50)
[2022-08-12] MEDS: Polyethylene Glycol 3350 17 GM Packet PER TUBE SCH ×2 (09:51→21:25)
[2022-08-12] MEDS: Senokot S 8.6-50 MG TAB PER TUBE SCH ×2 (09:51→21:25)
[2022-08-12] MEDS ORDERED: Simethicone Chewable 80 MG TAB PO SCH (10:15)
[2022-08-12] MEDS ORDERED: Simethicone 40 MG/0.6 ML Drop 30 ML BOT PO SCH (10:15)
[2022-08-13 04:46] LABS: ALT (SGPT) 45 U/L (8-55); AST (SGOT) 27 U/L (5-34); Albumin 3.2 g/dL (3.5-5.0); Alkaline Phosphatase 267 U/L (40-110); Anion Gap 16 mmol/L (10-20); BUN (Urea Nitrogen) 28 mg/dL (9.8-20.1); Bilirubin, Total 0.6 mg/dL (0.2-1.2); Calc. Creatinine Clearance 20 mL/min (70-130); Calcium 9.1 mg/dL (7.8-10.44); Carbon Dioxide 30 mmol/L (22-29); Chloride 98 mmol/L (98-107); Estimated GFR 33; Globulin 3.6 g/dL (2.4-3.5); Glucose 134 mg/dL (70-105); Protein, Total 6.8 g/dL (6.0-8.3); Sodium 141 mmol/L (136-145)
[2022-08-13 04:56] LABS: Potassium 2.9 mmol/L (3.5-5.1)
[2022-08-13 05:08] LABS: Band 18 % (5-11); Hemoglobin 10.4 g/dL (12.0-16.0); Lymphocytes 3 % (21-51); MDiff Complete? YES; Mean Corpuscular HGB CONC 33.2 g/dL (32.0-36.0); Mean Corpuscular Volume 81.3 fL (78.0-98.0); Mean Platelet Volume 8.7 fL (7.4-10.4); Metamyelocyte 1 % (0-0); Monocytes 4 % (0-10); Neutrophil 74 % (42-75); Platelet Count 453 thou/uL (130-400); Platelet Morphology Comment Appears Increased; RBC Distribution Width 14.1 % (11.5-14.5); RBC Morphology Normal; Red Blood Cell (RBC) Count 3.85 mill/uL (4.20-5.40); White Blood Cell (WBC) Count 23.8 thou/uL (4.8-10.8)
[2022-08-13] MEDS ORDERED: Electrolyte Replacement Protocol 1 EACH IVPB PRN (05:36)
[2022-08-13] MEDS: Potassium Chloride 20 MEQ in Premix Bag 1 BAG IVPB SCH ×4 (06:43→18:12)
[2022-08-13] MEDS ORDERED: Potassium Chloride 20 MEQ TAB PER TUBE SCH (06:45)
[2022-08-13] MEDS ORDERED: Iopamidol-370 76% 500 ML 1 ML ONE (09:06)
[2022-08-13] MEDS ORDERED: Simethicone Chewable 80 MG TAB PO SCH (09:45)
[2022-08-13] MEDS: Polyethylene Glycol 3350 17 GM Packet PER TUBE SCH (09:54)
[2022-08-13] MEDS: Enoxaparin Sodium 30 MG/0.3 ML SYRINGE SC SCH (09:54)
[2022-08-13] MEDS: Senokot S 8.6-50 MG TAB PER TUBE SCH ×2 (09:54→20:30)
[2022-08-13] MEDS: Amlodipine 10 MG TAB PO SCH (09:54)
[2022-08-13 12:33] LABS: Anion Gap 15 mmol/L (10-20); BUN (Urea Nitrogen) 25 mg/dL (9.8-20.1); Calc. Creatinine Clearance 19 mL/min (70-130); Carbon Dioxide 29 mmol/L (22-29); Chloride 100 mmol/L (98-107); Estimated GFR 31; Glucose 125 mg/dL (70-105); Potassium 4.1 mmol/L (3.5-5.1); Sodium 140 mmol/L (136-145)
[2022-08-13] MEDS ORDERED: Fleet Enema 133 ML BOT PR SCH (18:15)
[2022-08-13] MEDS: NS 0.9% w/ 20 MEQ KCL 1,000 ML/1,000 ML BAG IV SCH (18:50)
[2022-08-13] MEDS: Simethicone Chewable 80 MG TAB PER TUBE SCH (21:29)
[2022-08-14 05:12] LABS: ALT (SGPT) 36 U/L (8-55); AST (SGOT) 24 U/L (5-34); Albumin 3.4 g/dL (3.5-5.0); Alkaline Phosphatase 266 U/L (40-110); Anion Gap 19 mmol/L (10-20); BUN (Urea Nitrogen) 19 mg/dL (9.8-20.1); Bilirubin, Total 0.8 mg/dL (0.2-1.2); Calc. Creatinine Clearance 21 mL/min (70-130); Carbon Dioxide 22 mmol/L (22-29); Chloride 107 mmol/L (98-107); Estimated GFR 34; Globulin 3.9 g/dL (2.4-3.5); Glucose 77 mg/dL (70-105); Magnesium 2.2 mg/dL (1.6-2.6); Phosphorus 3.6 mg/dL (2.3-4.7); Potassium 4.4 mmol/L (3.5-5.1); Protein, Total 7.3 g/dL (6.0-8.3); Sodium 144 mmol/L (136-145)
[2022-08-14] MEDS: NS 0.9% w/ 20 MEQ KCL 1,000 ML/1,000 ML BAG IV SCH (05:41)
[2022-08-14 08:32] LABS: #Eosinphils 0.1 thou/uL (0.0-0.7); #Lymphocytes 1.4 thou/uL (1.20-3.40); #Monocytes 1.2 thou/uL (0.11-0.59); #Neutrophils 16.2 thou/uL (1.40-6.50); %Basophils 0.1 % (0.0-1.0); %Eosinophils 0.7 % (0.0-10.0); %Lymphocytes 7.2 % (21.0-51.0); %Monocytes 6.4 % (0.0-10.0); %Neutrophils 85.6 % (42.0-75.0); Hemoglobin 8.7 g/dL (12.0-16.0); Mean Corpuscular HGB CONC 31.6 g/dL (32.0-36.0); Mean Corpuscular Hemoglobin 25.9 pg (27.0-31.0); Mean Corpuscular Volume 81.9 fL (78.0-98.0); Mean Platelet Volume 8.3 fL (7.4-10.4); Platelet Count 531 thou/uL (130-400); RBC Distribution Width 14.4 % (11.5-14.5); Red Blood Cell (RBC) Count 3.37 mill/uL (4.20-5.40); White Blood Cell (WBC) Count 18.9 thou/uL (4.8-10.8)
[2022-08-14] MEDS: Amlodipine 10 MG TAB PO SCH (11:53)
[2022-08-14] MEDS: Senokot S 8.6-50 MG TAB PER TUBE SCH ×2 (11:54→20:37)
[2022-08-14] MEDS: Simethicone Chewable 80 MG TAB PER TUBE SCH ×2 (11:54→20:37)
[2022-08-14] MEDS: Enoxaparin Sodium 30 MG/0.3 ML SYRINGE SC SCH (11:54)
[2022-08-14] MEDS: Bisacodyl 10 MG SUPP PR SCH ×2 (12:11→23:27)
[2022-08-14] MEDS: D5 1/2 NS w/20 mEq KCL 1,000 ML IV SCH (12:11)
[2022-08-15] MEDS: D5 1/2 NS w/20 mEq KCL 1,000 ML IV SCH ×2 (00:25→13:39)
[2022-08-15 01:32] LABS: SARS-CoV-2 NAA Rapid Test Not Detected (NotDetected)
[2022-08-15 07:39] LABS: Anion Gap 13 mmol/L (10-20); BUN (Urea Nitrogen) 14 mg/dL (9.8-20.1); Calc. Creatinine Clearance 24 mL/min (70-130); Calcium 8.5 mg/dL (7.8-10.44); Carbon Dioxide 25 mmol/L (22-29); Chloride 112 mmol/L (98-107); Estimated GFR 41; Glucose 103 mg/dL (70-105); Potassium 4.2 mmol/L (3.5-5.1); Sodium 146 mmol/L (136-145)
[2022-08-15 08:08] LABS: #Eosinphils 0.4 thou/uL (0.0-0.7); #Lymphocytes 1.4 thou/uL (1.20-3.40); #Monocytes 1.2 thou/uL (0.11-0.59); #Neutrophils 14.2 thou/uL (1.40-6.50); %Basophils 0.1 % (0.0-1.0); %Eosinophils 2.1 % (0.0-10.0); %Lymphocytes 8.3 % (21.0-51.0); %Monocytes 6.7 % (0.0-10.0); %Neutrophils 82.9 % (42.0-75.0); Hemoglobin 9.7 g/dL (12.0-16.0); Mean Corpuscular HGB CONC 32.3 g/dL (32.0-36.0); Mean Corpuscular Hemoglobin 26.7 pg (27.0-31.0); Mean Corpuscular Volume 82.8 fL (78.0-98.0); Mean Platelet Volume 8.8 fL (7.4-10.4); Platelet Count 555 thou/uL (130-400); RBC Distribution Width 14.4 % (11.5-14.5); Red Blood Cell (RBC) Count 3.63 mill/uL (4.20-5.40); White Blood Cell (WBC) Count 17.2 thou/uL (4.8-10.8)
[2022-08-15] MEDS: Amlodipine 10 MG TAB PO SCH (08:17)
[2022-08-15] MEDS: Simethicone Chewable 80 MG TAB PER TUBE SCH ×2 (08:17→22:43)
[2022-08-15] MEDS: Senokot S 8.6-50 MG TAB PER TUBE SCH ×2 (08:17→22:42)
[2022-08-15] MEDS: Enoxaparin Sodium 30 MG/0.3 ML SYRINGE SC SCH (08:20)
[2022-08-15] MEDS: Bisacodyl 10 MG SUPP PR SCH ×2 (11:37→22:49)
[2022-08-16] MEDS: D5 1/2 NS w/20 mEq KCL 1,000 ML IV SCH ×2 (02:45→17:19)
[2022-08-16] MEDS ORDERED: Benzonatate 100 MG CAP PO PRN (09:00)
[2022-08-16] MEDS: Enoxaparin Sodium 30 MG/0.3 ML SYRINGE SC SCH (10:52)
[2022-08-16] MEDS: Amlodipine 10 MG TAB PO SCH (10:53)
[2022-08-16] MEDS: Simethicone Chewable 80 MG TAB PER TUBE SCH ×2 (10:53→21:29)
[2022-08-16] MEDS: Senokot S 8.6-50 MG TAB PER TUBE SCH ×2 (10:53→21:30)
[2022-08-16] MEDS: Fleet Enema 133 ML BOT PR SCH (12:55)
[2022-08-16] MEDS: Bisacodyl 10 MG SUPP PR SCH ×2 (12:56→23:40)
[2022-08-16 15:07] LABS: Anion Gap 13 mmol/L (10-20); BUN (Urea Nitrogen) 10 mg/dL (9.8-20.1); Calc. Creatinine Clearance 26 mL/min (70-130); Calcium 8.5 mg/dL (7.8-10.44); Carbon Dioxide 21 mmol/L (22-29); Chloride 111 mmol/L (98-107); Estimated GFR 50; Glucose 94 mg/dL (70-105); Potassium 4.3 mmol/L (3.5-5.1); Sodium 141 mmol/L (136-145)
[2022-08-17 04:52] LABS: #Basophils 0.1 thou/uL (0.0-0.2); #Eosinphils 0.1 thou/uL (0.0-0.7); #Lymphocytes 1.4 thou/uL (1.20-3.40); #Monocytes 0.8 thou/uL (0.11-0.59); #Neutrophils 11.5 thou/uL (1.40-6.50); %Basophils 0.4 % (0.0-1.0); %Eosinophils 0.7 % (0.0-10.0); %Lymphocytes 10.2 % (21.0-51.0); %Monocytes 5.9 % (0.0-10.0); %Neutrophils 82.7 % (42.0-75.0); Mean Corpuscular HGB CONC 31.9 g/dL (32.0-36.0); Mean Corpuscular Hemoglobin 26.5 pg (27.0-31.0); Mean Platelet Volume 9.2 fL (7.4-10.4); Platelet Count 563 thou/uL (130-400); RBC Distribution Width 14.8 % (11.5-14.5); Red Blood Cell (RBC) Count 4.52 mill/uL (4.20-5.40); White Blood Cell (WBC) Count 13.9 thou/uL (4.8-10.8)
[2022-08-17] MEDS: D5 1/2 NS w/20 mEq KCL 1,000 ML IV SCH ×2 (05:51→23:51)
[2022-08-17] MEDS: Fleet Enema 133 ML BOT PR SCH (06:43)
[2022-08-17] MEDS: Simethicone Chewable 80 MG TAB PER TUBE SCH ×2 (08:58→20:50)
[2022-08-17] MEDS: Senokot S 8.6-50 MG TAB PER TUBE SCH (08:58)
[2022-08-17] MEDS: Amlodipine 10 MG TAB PO SCH (08:58)
[2022-08-17] MEDS: Enoxaparin Sodium 30 MG/0.3 ML SYRINGE SC SCH (08:59)
[2022-08-17] MEDS ORDERED: Lidocaine 1% PF 5 ML VIAL ONE (13:04)
[2022-08-17] MEDS ORDERED: PROPOFOL 200 MG/20 ML VIAL ONE (13:04)
[2022-08-17] MEDS ORDERED: Fentanyl 100 MCG/2 ML VIAL ONE (13:12)
[2022-08-17] MEDS: Bisacodyl 10 MG SUPP PR SCH (13:22)
[2022-08-18 05:14] LABS: Anion Gap 14 mmol/L (10-20); BUN (Urea Nitrogen) 6 mg/dL (9.8-20.1); Calc. Creatinine Clearance 29 mL/min (70-130); Calcium 8.4 mg/dL (7.8-10.44); Carbon Dioxide 18 mmol/L (22-29); Chloride 113 mmol/L (98-107); Estimated GFR 57; Glucose 101 mg/dL (70-105); Potassium 5.5 mmol/L (3.5-5.1); Sodium 139 mmol/L (136-145)
[2022-08-18] MEDS: Dextrose 5 %-0.45 % NaCl 1,000 ML IV SCH ×2 (06:44→20:40)
[2022-08-18 07:07] LABS: #Eosinphils 0.1 thou/uL (0.0-0.7); #Lymphocytes 1.2 thou/uL (1.20-3.40); #Monocytes 1.1 thou/uL (0.11-0.59); #Neutrophils 13.6 thou/uL (1.40-6.50); %Basophils 0.2 % (0.0-1.0); %Eosinophils 0.8 % (0.0-10.0); %Lymphocytes 7.5 % (21.0-51.0); %Monocytes 6.9 % (0.0-10.0); %Neutrophils 84.6 % (42.0-75.0); Hemoglobin 9.7 g/dL (12.0-16.0); Mean Corpuscular HGB CONC 31.3 g/dL (32.0-36.0); Mean Corpuscular Hemoglobin 25.8 pg (27.0-31.0); Mean Corpuscular Volume 82.4 fL (78.0-98.0); Mean Platelet Volume 8.1 fL (7.4-10.4); Platelet Count 587 thou/uL (130-400); RBC Distribution Width 14.4 % (11.5-14.5); Red Blood Cell (RBC) Count 3.75 mill/uL (4.20-5.40); White Blood Cell (WBC) Count 16.1 thou/uL (4.8-10.8)
[2022-08-18] MEDS: Enoxaparin Sodium 30 MG/0.3 ML SYRINGE SC SCH (08:48)
[2022-08-18] MEDS: Simethicone Chewable 80 MG TAB PER TUBE SCH ×2 (08:48→20:48)
[2022-08-18] MEDS: Amlodipine 10 MG TAB PO SCH (08:48)
[2022-08-18] MEDS: Polyethylene Glycol 3350 17 GM Packet PER TUBE SCH (08:55)
[2022-08-18] MEDS: Guaifenesin DM 100-10/5 ML UDCUP PO PRN ×2 (08:57→20:47)
[2022-08-18] MEDS ORDERED: Metoclopramide 10 MG/10 ML UDCUP PER TUBE SCH (11:30)
[2022-08-18] MEDS: Metoclopramide 10 MG/10 ML UDCUP PER TUBE SCH ×2 (16:32→21:33)
[2022-08-19] MEDS: Metoclopramide 10 MG/10 ML UDCUP PER TUBE SCH ×5 (00:12→23:56)
[2022-08-19] MEDS: Guaifenesin DM 100-10/5 ML UDCUP PO PRN ×2 (04:25→21:32)
[2022-08-19 05:11] LABS: Anion Gap 14 mmol/L (10-20); BUN (Urea Nitrogen) 7 mg/dL (9.8-20.1); Calc. Creatinine Clearance 28 mL/min (70-130); Carbon Dioxide 21 mmol/L (22-29); Chloride 107 mmol/L (98-107); Potassium 3.7 mmol/L (3.5-5.1); Sodium 138 mmol/L (136-145)
[2022-08-19 05:12] LABS: Calcium 8.8 mg/dL (7.8-10.44); Estimated GFR 56; Glucose 124 mg/dL (70-105)
[2022-08-19 05:25] LABS: #Basophils 0.1 thou/uL (0.0-0.2); #Eosinphils 0.2 thou/uL (0.0-0.7); #Lymphocytes 1.1 thou/uL (1.20-3.40); #Monocytes 1.3 thou/uL (0.11-0.59); #Neutrophils 11.4 thou/uL (1.40-6.50); %Basophils 0.7 % (0.0-1.0); %Eosinophils 1.4 % (0.0-10.0); %Lymphocytes 8.1 % (21.0-51.0); %Monocytes 9.2 % (0.0-10.0); %Neutrophils 80.7 % (42.0-75.0); Hemoglobin 9.7 g/dL (12.0-16.0); Mean Corpuscular HGB CONC 31.7 g/dL (32.0-36.0); Mean Corpuscular Hemoglobin 26.6 pg (27.0-31.0); Mean Corpuscular Volume 83.9 fL (78.0-98.0); Mean Platelet Volume 8.8 fL (7.4-10.4); Platelet Count 512 thou/uL (130-400); RBC Distribution Width 14.7 % (11.5-14.5); Red Blood Cell (RBC) Count 3.63 mill/uL (4.20-5.40); White Blood Cell (WBC) Count 14.1 thou/uL (4.8-10.8)
[2022-08-19] MEDS: Simethicone Chewable 80 MG TAB PER TUBE SCH ×2 (10:25→21:32)
[2022-08-19] MEDS: Polyethylene Glycol 3350 17 GM Packet PER TUBE SCH (10:25)
[2022-08-19] MEDS: Enoxaparin Sodium 30 MG/0.3 ML SYRINGE SC SCH (10:25)
[2022-08-19] MEDS: Amlodipine 10 MG TAB PO SCH (10:25)
[2022-08-20] MEDS: Metoclopramide 10 MG/10 ML UDCUP PER TUBE SCH ×4 (04:10→23:32)
[2022-08-20 04:22] LABS: #Eosinphils 0.1 thou/uL (0.0-0.7); #Lymphocytes 0.8 thou/uL (1.20-3.40); #Monocytes 1.5 thou/uL (0.11-0.59); #Neutrophils 10.3 thou/uL (1.40-6.50); %Basophils 0.4 % (0.0-1.0); %Eosinophils 1.2 % (0.0-10.0); %Lymphocytes 6.4 % (21.0-51.0); %Monocytes 11.4 % (0.0-10.0); %Neutrophils 80.6 % (42.0-75.0); Hemoglobin 8.8 g/dL (12.0-16.0); Mean Corpuscular HGB CONC 31.4 g/dL (32.0-36.0); Mean Corpuscular Hemoglobin 26.1 pg (27.0-31.0); Mean Corpuscular Volume 83.1 fL (78.0-98.0); Mean Platelet Volume 8.1 fL (7.4-10.4); Platelet Count 468 thou/uL (130-400); RBC Distribution Width 14.6 % (11.5-14.5); Red Blood Cell (RBC) Count 3.39 mill/uL (4.20-5.40); White Blood Cell (WBC) Count 12.8 thou/uL (4.8-10.8)
[2022-08-20 04:37] LABS: Anion Gap 12 mmol/L (10-20); BUN (Urea Nitrogen) 8 mg/dL (9.8-20.1); Calc. Creatinine Clearance 26 mL/min (70-130); Calcium 9.1 mg/dL (7.8-10.44); Carbon Dioxide 24 mmol/L (22-29); Chloride 105 mmol/L (98-107); Estimated GFR 51; Glucose 117 mg/dL (70-105); Potassium 3.2 mmol/L (3.5-5.1); Sodium 138 mmol/L (136-145)
[2022-08-20] MEDS ORDERED: Sodium Chloride For Inhalation 0.9% 3 ML NEB NEB SCH ×2 (05:30→05:45)
[2022-08-20] MEDS ORDERED: Potassium Chloride 20 MEQ in Premix Bag 1 BAG IVPB SCH (08:00)
[2022-08-20] MEDS ORDERED: Potassium Chloride 20 MEQ TAB PO SCH (08:00)
[2022-08-20] MEDS ORDERED: Potassium Bicarbonate/Cit Ac 20 MEQ TAB PER TUBE SCH (08:15)
[2022-08-20] MEDS: Simethicone Chewable 80 MG TAB PER TUBE SCH ×2 (09:52→20:13)
[2022-08-20] MEDS: Enoxaparin Sodium 30 MG/0.3 ML SYRINGE SC SCH (09:53)
[2022-08-20] MEDS: Amlodipine 10 MG TAB PO SCH (09:53)
[2022-08-20] MEDS: Polyethylene Glycol 3350 17 GM Packet PER TUBE SCH ×2 (09:53→20:13)
[2022-08-20] MEDS: Clindamycin 150 MG CAP PER TUBE SCH ×2 (12:34→20:12)
[2022-08-20] MEDS: Acetaminophen 325 MG TAB PER TUBE PRN (20:13)
[2022-08-21] MEDS: Metoclopramide 10 MG/10 ML UDCUP PER TUBE SCH ×3 (03:37→16:35)
[2022-08-21] MEDS: Clindamycin 150 MG CAP PER TUBE SCH ×3 (03:37→22:01)
[2022-08-21 04:31] LABS: #Basophils 0.1 thou/uL (0.0-0.2); #Eosinphils 0.3 thou/uL (0.0-0.7); #Lymphocytes 1.5 thou/uL (1.20-3.40); %Basophils 0.9 % (0.0-1.0); %Eosinophils 2.9 % (0.0-10.0); %Lymphocytes 16.5 % (21.0-51.0); %Monocytes 11.8 % (0.0-10.0); Hemoglobin 9.3 g/dL (12.0-16.0); Mean Corpuscular HGB CONC 31.8 g/dL (32.0-36.0); Mean Corpuscular Hemoglobin 26.5 pg (27.0-31.0); Mean Corpuscular Volume 83.1 fL (78.0-98.0); Mean Platelet Volume 8.2 fL (7.4-10.4); Platelet Count 466 thou/uL (130-400); RBC Distribution Width 14.3 % (11.5-14.5); Red Blood Cell (RBC) Count 3.52 mill/uL (4.20-5.40); White Blood Cell (WBC) Count 8.8 thou/uL (4.8-10.8)
[2022-08-21 04:49] LABS: Anion Gap 14 mmol/L (10-20); BUN (Urea Nitrogen) 10 mg/dL (9.8-20.1); Calc. Creatinine Clearance 21 mL/min (70-130); Calcium 9.4 mg/dL (7.8-10.44); Carbon Dioxide 29 mmol/L (22-29); Chloride 103 mmol/L (98-107); Estimated GFR 39; Glucose 89 mg/dL (70-105); Potassium 4.3 mmol/L (3.5-5.1); Sodium 142 mmol/L (136-145)
[2022-08-21] MEDS: Amlodipine 10 MG TAB PO SCH (09:24)
[2022-08-21] MEDS: Simethicone Chewable 80 MG TAB PER TUBE SCH ×2 (09:24→22:02)
[2022-08-21] MEDS: Enoxaparin Sodium 30 MG/0.3 ML SYRINGE SC SCH (09:24)
[2022-08-21] MEDS: Polyethylene Glycol 3350 17 GM Packet PER TUBE SCH ×2 (09:24→22:01)
[2022-08-21] MEDS: Lactated Ringer's 1,000 ML IV SCH (12:51)
[2022-08-22] MEDS: Metoclopramide 10 MG/10 ML UDCUP PER TUBE SCH ×5 (00:28→22:54)
[2022-08-22] MEDS: Clindamycin 150 MG CAP PER TUBE SCH ×3 (03:19→20:57)
[2022-08-22] MEDS: Lactated Ringer's 1,000 ML IV SCH (03:20)
[2022-08-22 05:00] LABS: #Basophils 0.1 thou/uL (0.0-0.2); #Eosinphils 0.2 thou/uL (0.0-0.7); #Lymphocytes 1.1 thou/uL (1.20-3.40); #Monocytes 1.3 thou/uL (0.11-0.59); #Neutrophils 7.2 thou/uL (1.40-6.50); %Basophils 0.6 % (0.0-1.0); %Eosinophils 2.5 % (0.0-10.0); %Monocytes 13.1 % (0.0-10.0); %Neutrophils 72.8 % (42.0-75.0); Hemoglobin 9.5 g/dL (12.0-16.0); Mean Corpuscular HGB CONC 33.6 g/dL (32.0-36.0); Mean Corpuscular Hemoglobin 27.9 pg (27.0-31.0); Mean Corpuscular Volume 82.8 fL (78.0-98.0); Mean Platelet Volume 8.5 fL (7.4-10.4); Platelet Count 421 thou/uL (130-400); RBC Distribution Width 14.1 % (11.5-14.5); White Blood Cell (WBC) Count 9.8 thou/uL (4.8-10.8)
[2022-08-22 05:08] LABS: Anion Gap 15 mmol/L (10-20); BUN (Urea Nitrogen) 16 mg/dL (9.8-20.1); Calc. Creatinine Clearance 25 mL/min (70-130); Calcium 9.9 mg/dL (7.8-10.44); Carbon Dioxide 26 mmol/L (22-29); Chloride 103 mmol/L (98-107); Estimated GFR 49; Glucose 120 mg/dL (70-105); Potassium 3.9 mmol/L (3.5-5.1); Sodium 140 mmol/L (136-145)
[2022-08-22] MEDS: Simethicone Chewable 80 MG TAB PER TUBE SCH ×2 (08:59→20:58)
[2022-08-22] MEDS: Enoxaparin Sodium 30 MG/0.3 ML SYRINGE SC SCH (08:59)
[2022-08-22] MEDS: Amlodipine 10 MG TAB PO SCH (08:59)
[2022-08-22] MEDS: Polyethylene Glycol 3350 17 GM Packet PER TUBE SCH ×2 (08:59→20:58)
[2022-08-22] MEDS: Scopolamine 1.5 mg/72 hour Patch TD SCH (11:16)
[2022-08-22] MEDS: Acetaminophen 325 MG TAB PER TUBE PRN ×2 (11:17→16:31)
[2022-08-22] MEDS: Guaifenesin DM 100-10/5 ML UDCUP PO SCH ×4 (12:59→20:57)
[2022-08-23] MEDS: Guaifenesin DM 100-10/5 ML UDCUP PO SCH ×6 (02:09→20:48)
[2022-08-23] MEDS: Clindamycin 150 MG CAP PER TUBE SCH ×3 (02:09→20:47)
[2022-08-23] MEDS: Metoclopramide 10 MG/10 ML UDCUP PER TUBE SCH ×3 (05:00→17:45)
[2022-08-23 05:02] LABS: #Eosinphils 0.2 thou/uL (0.0-0.7); #Lymphocytes 1.1 thou/uL (1.20-3.40); %Basophils 0.6 % (0.0-1.0); %Eosinophils 2.9 % (0.0-10.0); %Lymphocytes 13.5 % (21.0-51.0); %Monocytes 11.5 % (0.0-10.0); %Neutrophils 71.6 % (42.0-75.0); Hemoglobin 9.2 g/dL (12.0-16.0); Mean Corpuscular HGB CONC 32.2 g/dL (32.0-36.0); Mean Corpuscular Hemoglobin 26.8 pg (27.0-31.0); Mean Corpuscular Volume 83.1 fL (78.0-98.0); Mean Platelet Volume 8.2 fL (7.4-10.4); Platelet Count 372 thou/uL (130-400); RBC Distribution Width 14.1 % (11.5-14.5); Red Blood Cell (RBC) Count 3.42 mill/uL (4.20-5.40); White Blood Cell (WBC) Count 8.4 thou/uL (4.8-10.8)
[2022-08-23 05:05] LABS: Anion Gap 15 mmol/L (10-20); BUN (Urea Nitrogen) 20 mg/dL (9.8-20.1); Calc. Creatinine Clearance 23 mL/min (70-130); Calcium 9.3 mg/dL (7.8-10.44); Carbon Dioxide 27 mmol/L (22-29); Chloride 100 mmol/L (98-107); Estimated GFR 45; Glucose 112 mg/dL (70-105); Potassium 3.5 mmol/L (3.5-5.1); Sodium 138 mmol/L (136-145)
[2022-08-23] MEDS ORDERED: Potassium Bicarbonate/Cit Ac 20 MEQ TAB PER TUBE SCH (08:00)
[2022-08-23] MEDS: Simethicone Chewable 80 MG TAB PER TUBE SCH ×2 (09:19→20:48)
[2022-08-23] MEDS: Polyethylene Glycol 3350 17 GM Packet PER TUBE SCH ×2 (09:19→20:48)
[2022-08-23] MEDS: Enoxaparin Sodium 30 MG/0.3 ML SYRINGE SC SCH (09:19)
[2022-08-23] MEDS: Amlodipine 10 MG TAB PO SCH (09:20)
[2022-08-23] MEDS: Ondansetron PF 4 MG/2 ML Vial IVP PRN (12:14)
[2022-08-24] MEDS: Metoclopramide 10 MG/10 ML UDCUP PER TUBE SCH ×4 (00:25→17:52)
[2022-08-24] MEDS: Guaifenesin DM 100-10/5 ML UDCUP PO SCH ×4 (00:25→14:05)
[2022-08-24] MEDS: Clindamycin 150 MG CAP PER TUBE SCH ×3 (04:00→21:16)
[2022-08-24 04:51] LABS: #Eosinphils 0.3 thou/uL (0.0-0.7); #Lymphocytes 1.1 thou/uL (1.20-3.40); #Monocytes 1.1 thou/uL (0.11-0.59); #Neutrophils 7.2 thou/uL (1.40-6.50); %Basophils 0.2 % (0.0-1.0); %Eosinophils 3.5 % (0.0-10.0); %Lymphocytes 11.7 % (21.0-51.0); %Neutrophils 73.6 % (42.0-75.0); Hemoglobin 9.5 g/dL (12.0-16.0); Mean Corpuscular HGB CONC 33.1 g/dL (32.0-36.0); Mean Corpuscular Hemoglobin 27.4 pg (27.0-31.0); Mean Corpuscular Volume 82.6 fL (78.0-98.0); Mean Platelet Volume 8.4 fL (7.4-10.4); Platelet Count 342 thou/uL (130-400); RBC Distribution Width 14.1 % (11.5-14.5); Red Blood Cell (RBC) Count 3.48 mill/uL (4.20-5.40); White Blood Cell (WBC) Count 9.8 thou/uL (4.8-10.8)
[2022-08-24 05:05] LABS: Anion Gap 12 mmol/L (10-20); BUN (Urea Nitrogen) 30 mg/dL (9.8-20.1); Calc. Creatinine Clearance 21 mL/min (70-130); Calcium 9.4 mg/dL (7.8-10.44); Carbon Dioxide 31 mmol/L (22-29); Chloride 99 mmol/L (98-107); Estimated GFR 41; Glucose 103 mg/dL (70-105); Potassium 3.8 mmol/L (3.5-5.1); Sodium 138 mmol/L (136-145)
[2022-08-24] MEDS: Amlodipine 10 MG TAB PO SCH (09:05)
[2022-08-24] MEDS: Simethicone Chewable 80 MG TAB PER TUBE SCH ×2 (09:05→21:16)
[2022-08-24] MEDS: Polyethylene Glycol 3350 17 GM Packet PER TUBE SCH ×2 (09:05→21:16)
[2022-08-24] MEDS: Enoxaparin Sodium 30 MG/0.3 ML SYRINGE SC SCH (09:05)
[2022-08-24] MEDS: Guaifenesin DM 100-10/5 ML UDCUP PER TUBE SCH ×3 (14:00→21:15)
[2022-08-24 15:53] VITALS: BMI 17.0
[2022-08-25] MEDS: Metoclopramide 10 MG/10 ML UDCUP PER TUBE SCH ×4 (01:33→17:55)
[2022-08-25] MEDS: Guaifenesin DM 100-10/5 ML UDCUP PER TUBE SCH ×3 (01:34→09:19)
[2022-08-25] MEDS: Clindamycin 150 MG CAP PER TUBE SCH ×3 (05:26→21:20)
[2022-08-25] MEDS: Simethicone Chewable 80 MG TAB PER TUBE SCH ×2 (09:17→21:20)
[2022-08-25] MEDS: Polyethylene Glycol 3350 17 GM Packet PER TUBE SCH ×2 (09:17→21:20)
[2022-08-25] MEDS: Scopolamine 1.5 mg/72 hour Patch TD SCH (09:17)
[2022-08-25] MEDS: Enoxaparin Sodium 30 MG/0.3 ML SYRINGE SC SCH (09:17)
[2022-08-25] MEDS: Amlodipine 10 MG TAB PO SCH (09:17)
[2022-08-26] MEDS: Metoclopramide 10 MG/10 ML UDCUP PER TUBE SCH ×4 (01:41→16:21)
[2022-08-26] MEDS: Clindamycin 150 MG CAP PER TUBE SCH ×2 (03:18→13:21)
[2022-08-26 04:42] LABS: #Eosinphils 0.6 thou/uL (0.0-0.7); #Lymphocytes 1.1 thou/uL (1.20-3.40); #Monocytes 1.1 thou/uL (0.11-0.59); #Neutrophils 11.1 thou/uL (1.40-6.50); %Basophils 0.3 % (0.0-1.0); %Lymphocytes 7.9 % (21.0-51.0); %Monocytes 8.2 % (0.0-10.0); %Neutrophils 79.6 % (42.0-75.0); Hemoglobin 10.3 g/dL (12.0-16.0); Mean Corpuscular HGB CONC 31.5 g/dL (32.0-36.0); Mean Corpuscular Hemoglobin 26.3 pg (27.0-31.0); Mean Corpuscular Volume 83.4 fL (78.0-98.0); Mean Platelet Volume 8.7 fL (7.4-10.4); Platelet Count 356 thou/uL (130-400); RBC Distribution Width 14.3 % (11.5-14.5)
[2022-08-26 05:27] LABS: Anion Gap 14 mmol/L (10-20); BUN (Urea Nitrogen) 26 mg/dL (9.8-20.1); Calc. Creatinine Clearance 18 mL/min (70-130); Carbon Dioxide 29 mmol/L (22-29); Chloride 99 mmol/L (98-107); Estimated GFR 35; Glucose 146 mg/dL (70-105); Potassium 3.4 mmol/L (3.5-5.1); Sodium 139 mmol/L (136-145)
[2022-08-26] MEDS ORDERED: Potassium Chloride 20 MEQ TAB PO SCH (08:00)
[2022-08-26] MEDS: Simethicone Chewable 80 MG TAB PER TUBE SCH (09:09)
[2022-08-26] MEDS: Polyethylene Glycol 3350 17 GM Packet PER TUBE SCH (09:09)
[2022-08-26] MEDS: Amlodipine 10 MG TAB PO SCH (09:09)
[2022-08-26] MEDS: Enoxaparin Sodium 30 MG/0.3 ML SYRINGE SC SCH (09:10)
[2022-08-26 09:44] LABS: Magnesium 2.4 mg/dL (1.6-2.6); Phosphorus 4.6 mg/dL (2.3-4.7)
[2022-08-26] MEDS ORDERED: Potassium Chloride 20 MEQ in Premix Bag 1 BAG IVPB SCH (10:30)
[2022-08-26] MEDS ORDERED: Enoxaparin Sodium 30 MG/0.3 ML SYRINGE SC SCH (10:45)
[2022-08-26] MEDS ORDERED: Lactated Ringer's 500 ML IV SCH (12:00)
[2022-08-26 16:16] VITALS: BP 116/68; TEMP 98.8
[2022-08-26 16:40] LABS: #Basophils 0.1 thou/uL (0.0-0.2); #Eosinphils 0.5 thou/uL (0.0-0.7); #Lymphocytes 1.3 thou/uL (1.20-3.40); #Monocytes 1.3 thou/uL (0.11-0.59); #Neutrophils 9.2 thou/uL (1.40-6.50); %Basophils 0.7 % (0.0-1.0); %Eosinophils 4.3 % (0.0-10.0); %Lymphocytes 10.7 % (21.0-51.0); %Monocytes 10.6 % (0.0-10.0); %Neutrophils 73.8 % (42.0-75.0); Hemoglobin 9.6 g/dL (12.0-16.0); Mean Corpuscular HGB CONC 31.6 g/dL (32.0-36.0); Mean Corpuscular Hemoglobin 26.1 pg (27.0-31.0); Mean Corpuscular Volume 82.7 fL (78.0-98.0); Mean Platelet Volume 8.6 fL (7.4-10.4); Platelet Count 328 thou/uL (130-400); RBC Distribution Width 14.2 % (11.5-14.5); Red Blood Cell (RBC) Count 3.68 mill/uL (4.20-5.40); White Blood Cell (WBC) Count 12.5 thou/uL (4.8-10.8)
[2022-08-26 17:01] LABS: Anion Gap 13 mmol/L (10-20); BUN (Urea Nitrogen) 21 mg/dL (9.8-20.1); Calc. Creatinine Clearance 25 mL/min (70-130); Calcium 9.6 mg/dL (7.8-10.44); Carbon Dioxide 30 mmol/L (22-29); Chloride 100 mmol/L (98-107); Estimated GFR 50; Glucose 92 mg/dL (70-105); Sodium 139 mmol/L (136-145)
[2022-08-27] MEDS ORDERED: Enoxaparin Sodium 30 MG/0.3 ML SYRINGE SC SCH (09:00)
== END 2022-08-26 19:07 | disposition home health service (06) | DRG 853 ==
LOC: ERS 12:11 → ERHOLD 15:23 → 2NO 18:40 → CCU 08-04 04:30 → IMCU/EMU 08-05 16:34 → 2NO 08-07 21:17
PROVIDERS: ADMIT Emergency Medicine; ATTEND Emergency Medicine
PROC: 0T778DZ Dilation of Left Ureter with Intraluminal Device, Via Natural or Artificial Opening Endoscopic (ICD-10-PCS; principal; 2022-08-03)
PROC: BT1F1ZZ Fluoroscopy of Left Kidney, Ureter and Bladder using Low Osmolar Contrast (ICD-10-PCS; 2022-08-03)
PROC: 0TC78ZZ Extirpation of Matter from Left Ureter, Via Natural or Artificial Opening Endoscopic (ICD-10-PCS; 2022-08-03)
PROC: 3E04329 Introduction of Other Anti-infective into Central Vein, Percutaneous Approach (ICD-10-PCS; 2022-08-04)
PROC: 5A0935A Assistance with Respiratory Ventilation, Less than 24 Consecutive Hours, High Flow/Velocity Cannula (ICD-10-PCS; 2022-08-04)
PROC: 02H633Z Insertion of Infusion Device into Right Atrium, Percutaneous Approach (ICD-10-PCS; 2022-08-04)
PROC: B548ZZA Ultrasonography of Superior Vena Cava, Guidance (ICD-10-PCS; 2022-08-04)
PROC: 3E03329 Introduction of Other Anti-infective into Peripheral Vein, Percutaneous Approach (ICD-10-PCS; 2022-08-06)
PROC: 3E033XZ Introduction of Vasopressor into Peripheral Vein, Percutaneous Approach (ICD-10-PCS; 2022-08-06)
PROC: 0DBM8ZZ Excision of Descending Colon, Via Natural or Artificial Opening Endoscopic (ICD-10-PCS; 2022-08-17)
DX: A41.4 Sepsis due to anaerobes (principal); Z51.5 Encounter for palliative care; Z20.822 Contact with and (suspected) exposure to COVID-19; G93.41 Metabolic encephalopathy; R65.21 Severe sepsis with septic shock; J96.01 Acute respiratory failure with hypoxia; N17.0 Acute kidney failure with tubular necrosis; J69.0 Pneumonitis due to inhalation of food and vomit; E87.20 Acidosis, unspecified; N13.6 Pyonephrosis; I50.22 Chronic systolic (congestive) heart failure; E87.0 Hyperosmolality and hypernatremia; F79 Unspecified intellectual disabilities; K63.5 Polyp of colon; G80.9 Cerebral palsy, unspecified; E87.6 Hypokalemia; E86.0 Dehydration; R74.01 Elevation of levels of liver transaminase levels; D69.59 Other secondary thrombocytopenia; I11.0 Hypertensive heart disease with heart failure; E83.51 Hypocalcemia; S91.301A Unspecified open wound, right foot, initial encounter; X58.XXXA Exposure to other specified factors, initial encounter; K59.09 Other constipation; R19.04 Left lower quadrant abdominal swelling, mass and lump; R13.12 Dysphagia, oropharyngeal phase; K52.89 Other specified noninfective gastroenteritis and colitis; Z98.890 Other specified postprocedural states; Z88.0 Allergy status to penicillin; Z79.899 Other long term (current) drug therapy
CPT/HCPCS: 36415; 36416; 36600; 71045; 74018; 74176; 74177; 74420; 76856; 80048; 80053; 80074; 81001; 81003; 81015; 82310; 82365; 82550; 82805; 83605; 83690; 83735; 83880; 84100; 84145; 84484; 85025; 85520; 86304; 87040; 87077; 87086; 87102; 87149; 87186; 87206; 87324; 87449; 87811; 88300; 88305; 93005; 93010; 93976; 96374; 96375; C2617; J0610; J1650; J1940; J1956; J2185; J2370; J2405; J2704; J3010; J3370; J3475; J3480; J3490; J7042; J7120; Q0162; Q9963; Q9967; U0002; U0003; U0005

== ENCOUNTER 2022-11-25 13:22 | Outpatient (CLI) | payer MEDICARE, OTHER | END 2022-11-25 13:23 | disposition home or self-care (01) | LOC: ULT 13:22 | PROVIDERS: ATTEND Obstetrics & Gynecology Gynecologic Oncology | DX: N83.8 Other noninflammatory disorders of ovary, fallopian tube and broad ligament (principal) | CPT/HCPCS: 76856; 93976 ==

== ENCOUNTER 2023-09-03 01:29 | Observation (INO) | payer MEDICARE, MEDICAID ==
[2023-09-03 06:27] LABS: #Eosinphils 0.2 thou/uL (0.0-0.7); #Monocytes 0.5 thou/uL (0.11-0.59); #Neutrophils 5.4 thou/uL (1.40-6.50); %Basophils 0.6 % (0.0-1.0); %Eosinophils 2.1 % (0.0-10.0); %Lymphocytes 13.8 % (21.0-51.0); %Monocytes 7.6 % (0.0-10.0); %Neutrophils 75.6 % (42.0-75.0); Hematocrit 40.7 % (36.0-47.0); Hemoglobin 13.7 g/dL (12.0-16.0); Mean Corpuscular HGB CONC 33.7 g/dL (32.0-36.0); Mean Corpuscular Hemoglobin 27.1 pg (27.0-31.0); Mean Corpuscular Volume 80.4 fl (78.0-98.0); Platelet Count 287 10x3/uL (130-400); Red Blood Cell (RBC) Count 5.06 mill/uL (4.20-5.40); White Blood Cell (WBC) Count 7.2 10x3/uL (4.8-10.8)
[2023-09-03 06:56] LABS: ALT (SGPT) 75 U/L (8-55); AST (SGOT) 41 U/L (5-34); Albumin 4.9 g/dL (3.5-5.0); Alkaline Phosphatase 138 U/L (40-110); Anion Gap 15 mmol/L (10-20); BUN (Urea Nitrogen) 38 mg/dL (9.8-20.1); Bilirubin, Total 0.4 mg/dL (0.2-1.2); Calc. Creatinine Clearance 0 mL/min (70-130); Calcium 10.8 mg/dL (7.8-10.44); Carbon Dioxide 32 mmol/L (22-29); Chloride 99 mmol/L (98-107); Estimated GFR 60; Globulin 3.4 g/dL (2.4-3.5); Glucose 110 mg/dL (70-105); Potassium 3.4 mmol/L (3.5-5.1); Protein, Total 8.3 g/dL (6.0-8.3); Sodium 143 mmol/L (136-145)
[2023-09-03 09:27] LABS: Bacteria/HPF 4+ HPF (None Seen); Bilirubin Negative (Negative); Blood, Urine Negative (Negative); CAUTI Indications for Culture Dysuria,urgency,freq; Clarity Turbid (Clear); Glucose, Urine (Dipstick) Normal (Negative); Ketone, Urine Negative (Negative); Leukocyte 500 Leu/uL (Negative); Nitrite Negative (Negative); Protein, Urine (Dipstick) 20 mg/dL (Neg-Trace); RBC/HPF 0-3 HPF (0-3); Specific Gravity, Urine 1.015 (1.002-1.036); Squamous Epithelial 0-3 HPF (0-3); Urobilinogen Normal mg/dL (Less than 2); WBC/HPF 21-50 HPF (0-3)
[2023-09-03 09:29] LABS: Urine Culture Reflex Yes Yes
[2023-09-03] MEDS ORDERED: Sodium Chloride 0.9% 1,000 ML IV SCH (11:15)
[2023-09-03 11:40] VITALS: BMI 28.6
[2023-09-03 11:55] VITALS: BP 137/91; TEMP 97.7
[2023-09-03] MEDS ORDERED: FLU VACC QS2023-24(6MOS UP)/PF 60 MCG/0.5 ML SYRINGE IM ONE (18:00)
== END 2023-09-03 14:52 | disposition home or self-care (01) ==
LOC: ERS 01:29 → T4-B 08:13
PROVIDERS: ADMIT Emergency Medicine; ATTEND Emergency Medicine
DX: K94.23 Gastrostomy malfunction (principal); I10 Essential (primary) hypertension; Z88.0 Allergy status to penicillin; Z79.899 Other long term (current) drug therapy; Z86.010 Personal history of colon polyps
CPT/HCPCS: 71045; 80053; 81001; 83605; 85025; 87077; 87086; 87186; 93005; 96360; 99282; G0378

== ENCOUNTER 2023-09-03 19:49 | Emergency (ER) | payer MEDICARE, MEDICAID | END 2023-09-03 21:52 | disposition home or self-care (01) | LOC: ERS 19:49 | DX: Z43.1 Encounter for attention to gastrostomy (principal); I10 Essential (primary) hypertension; Z79.899 Other long term (current) drug therapy ==

== ENCOUNTER 2023-12-08 11:47 | Inpatient (IN) | payer MEDICARE, MEDICAID ==
[~2023-12-08 11:47] MED LIST changes: -GASTROGRAFIN 30 ML BOT ONE; +Iopamidol-370 76% 500 ML MDV (1 ML CHARGE) ONE
[2023-12-08 12:31] LABS: #Monocytes 0.5 thou/uL (0.11-0.59); #Neutrophils 10.8 thou/uL (1.40-6.50); %Basophils 0.3 % (0.0-1.0); %Lymphocytes 5.9 % (21.0-51.0); %Monocytes 3.9 % (0.0-10.0); %Neutrophils 89.4 % (42.0-75.0); Hematocrit 40.2 % (36.0-47.0); Hemoglobin 13.1 g/dL (12.0-16.0); Mean Corpuscular HGB CONC 32.6 g/dL (32.0-36.0); Mean Corpuscular Hemoglobin 25.9 pg (27.0-31.0); Mean Corpuscular Volume 79.4 fl (78.0-98.0); Mean Platelet Volume 11.1 fL (7.4-10.4); Platelet Count 215 10x3/uL (130-400); RBC Distribution Width 14.3 % (11.5-14.5); Red Blood Cell (RBC) Count 5.06 mill/uL (4.20-5.40); White Blood Cell (WBC) Count 12.1 10x3/uL (4.8-10.8)
[2023-12-08] MEDS ORDERED: Cefepime 2 GM VIAL ONE (12:31)
[2023-12-08] MEDS ORDERED: Sodium Chloride 0.9% 100 ML ONE (12:31)
[2023-12-08] MEDS ORDERED: Acetaminophen 650 MG Suppository ONE (12:31)
[2023-12-08 13:03] LABS: ALT (SGPT) 96 U/L (8-55); AST (SGOT) 74 U/L (5-34); Albumin 4.1 g/dL (3.5-5.0); Alkaline Phosphatase 150 U/L (40-110); Anion Gap 17 mmol/L (10-20); BUN (Urea Nitrogen) 24 mg/dL (9.8-20.1); Bilirubin, Total 0.5 mg/dL (0.2-1.2); Calc. Creatinine Clearance 0 mL/min (70-130); Calcium 9.2 mg/dL (7.8-10.44); Carbon Dioxide 28 mmol/L (22-29); Chloride 97 mmol/L (98-107); Estimated GFR 58; Globulin 3.7 g/dL (2.4-3.5); Glucose 112 mg/dL (70-105); Potassium 3.4 mmol/L (3.5-5.1); Protein, Total 7.8 g/dL (6.0-8.3); Sodium 139 mmol/L (136-145)
[2023-12-08 13:38] LABS: SARS-CoV-2 NAA Rapid Test DETECTED (NotDetected)
[2023-12-08] MEDS ORDERED: LevoFLOXacin 750 mg/D5W 150 ml Premix Bag ONE (13:44)
[2023-12-08] MEDS ORDERED: Acetaminophen 325 MG TAB PO PRN (14:36)
[2023-12-08] MEDS ORDERED: Ondansetron PF 4 MG/2 ML Vial IVP PRN (14:36)
[2023-12-08 17:21] VITALS: BMI 28.0
[2023-12-08] MEDS: cefTRIAXone\\ROCEPHIN 1 GM in Sodium Chloride 0.9% 100 ML IVPB SCH (20:57)
[2023-12-08] MEDS: Polyethylene Glycol 3350 17 GM Packet PER TUBE SCH (20:57)
[2023-12-08] MEDS: metroNIDAZOLE 500 MG in Premix 1 BAG IVPB SCH (20:57)
[2023-12-09] MEDS: metroNIDAZOLE 500 MG in Premix 1 BAG IVPB SCH ×3 (05:47→20:38)
[2023-12-09 06:01] LABS: #Monocytes 0.8 thou/uL (0.11-0.59); #Neutrophils 11.7 thou/uL (1.40-6.50); %Basophils 0.1 % (0.0-1.0); %Eosinophils 0.1 % (0.0-10.0); %Lymphocytes 7.3 % (21.0-51.0); %Monocytes 5.9 % (0.0-10.0); %Neutrophils 85.9 % (42.0-75.0); Mean Corpuscular HGB CONC 32.4 g/dL (32.0-36.0); Mean Corpuscular Hemoglobin 25.8 pg (27.0-31.0); Mean Corpuscular Volume 79.6 fl (78.0-98.0); Platelet Count 234 10x3/uL (130-400); RBC Distribution Width 14.6 % (11.5-14.5); Red Blood Cell (RBC) Count 4.27 mill/uL (4.20-5.40); White Blood Cell (WBC) Count 13.6 10x3/uL (4.8-10.8)
[2023-12-09 06:33] LABS: ALT (SGPT) 74 U/L (8-55); AST (SGOT) 61 U/L (5-34); Albumin 3.2 g/dL (3.5-5.0); Alkaline Phosphatase 118 U/L (40-110); Anion Gap 11 mmol/L (10-20); BUN (Urea Nitrogen) 21 mg/dL (9.8-20.1); Bilirubin, Total 0.2 mg/dL (0.2-1.2); Calc. Creatinine Clearance 42 mL/min (70-130); Calcium 7.9 mg/dL (7.8-10.44); Carbon Dioxide 29 mmol/L (22-29); Chloride 107 mmol/L (98-107); Estimated GFR 67; Glucose 64 mg/dL (70-105); Potassium 3.1 mmol/L (3.5-5.1); Protein, Total 6.2 g/dL (6.0-8.3); Sodium 144 mmol/L (136-145)
[2023-12-09] MEDS: Polyethylene Glycol 3350 17 GM Packet PER TUBE SCH ×2 (08:29→20:39)
[2023-12-09] MEDS: Amlodipine 10 MG TAB PER TUBE SCH (08:29)
[2023-12-09] MEDS ORDERED: Potassium Chloride 20 MEQ TAB PO SCH (09:00)
[2023-12-09] MEDS: Azithromycin 200 MG/5 ML Oral Suspension PER TUBE SCH (12:06)
[2023-12-09] MEDS: cefTRIAXone\\ROCEPHIN 1 GM in Sodium Chloride 0.9% 100 ML IVPB SCH (20:37)
[2023-12-09] MEDS: Heparin 5,000 UNITS/ML VIAL SC SCH (20:39)
[2023-12-10] MEDS: metroNIDAZOLE 500 MG in Premix 1 BAG IVPB SCH (05:27)
[2023-12-10 06:23] LABS: #Eosinphils 0.1 thou/uL (0.0-0.7); #Monocytes 0.8 thou/uL (0.11-0.59); #Neutrophils 8.7 thou/uL (1.40-6.50); %Basophils 0.4 % (0.0-1.0); %Eosinophils 1.2 % (0.0-10.0); %Lymphocytes 12.7 % (21.0-51.0); %Monocytes 7.2 % (0.0-10.0); %Neutrophils 76.4 % (42.0-75.0); Hematocrit 34.6 % (36.0-47.0); Hemoglobin 11.1 g/dL (12.0-16.0); Mean Corpuscular HGB CONC 32.1 g/dL (32.0-36.0); Mean Corpuscular Hemoglobin 25.9 pg (27.0-31.0); Mean Corpuscular Volume 80.7 fl (78.0-98.0); Mean Platelet Volume 10.9 fL (7.4-10.4); Platelet Count 282 10x3/uL (130-400); RBC Distribution Width 14.8 % (11.5-14.5); Red Blood Cell (RBC) Count 4.29 mill/uL (4.20-5.40); White Blood Cell (WBC) Count 11.3 10x3/uL (4.8-10.8)
[2023-12-10 06:46] LABS: ALT (SGPT) 61 U/L (8-55); AST (SGOT) 40 U/L (5-34); Albumin 3.3 g/dL (3.5-5.0); Alkaline Phosphatase 122 U/L (40-110); Anion Gap 11 mmol/L (10-20); BUN (Urea Nitrogen) 18 mg/dL (9.8-20.1); Bilirubin, Total 0.2 mg/dL (0.2-1.2); Calc. Creatinine Clearance 48 mL/min (70-130); Calcium 7.7 mg/dL (7.8-10.44); Carbon Dioxide 25 mmol/L (22-29); Chloride 109 mmol/L (98-107); Estimated GFR 79; Globulin 3.1 g/dL (2.4-3.5); Glucose 89 mg/dL (70-105); Potassium 3.3 mmol/L (3.5-5.1); Protein, Total 6.4 g/dL (6.0-8.3); Sodium 142 mmol/L (136-145)
[2023-12-10] MEDS ORDERED: Potassium Chloride 20 MEQ TAB PO SCH (08:00)
[2023-12-10] MEDS: Amlodipine 10 MG TAB PER TUBE SCH (08:51)
[2023-12-10] MEDS: Polyethylene Glycol 3350 17 GM Packet PER TUBE SCH (08:51)
[2023-12-10] MEDS: Heparin 5,000 UNITS/ML VIAL SC SCH (08:51)
[2023-12-10] MEDS ORDERED: Potassium Bicarbonate/Cit Ac 20 MEQ TAB PO SCH (10:30)
[2023-12-10] MEDS: Azithromycin 200 MG/5 ML Oral Suspension PER TUBE SCH (11:55)
[2023-12-10 11:57] VITALS: BP 116/77; TEMP 97.3
[2023-12-11] MEDS ORDERED: FLU VACC QS2023-24(6MOS UP)/PF 60 MCG/0.5 ML SYRINGE IM ONE (09:00)
== END 2023-12-10 13:37 | disposition home or self-care (01) | DRG 177 ==
LOC: ERS 11:47 → ERHOLD 14:08 → T4-B 16:41
PROVIDERS: ADMIT Family Medicine; ATTEND Family Medicine
DX: U07.1 COVID-19 (principal); J12.82 Pneumonia due to coronavirus disease 2019; J69.0 Pneumonitis due to inhalation of food and vomit; J96.01 Acute respiratory failure with hypoxia; I13.0 Hypertensive heart and chronic kidney disease with heart failure and stage 1 through stage 4 chronic kidney disease, or unspecified chronic kidney disease; I50.22 Chronic systolic (congestive) heart failure; Z66 Do not resuscitate; N18.31 Chronic kidney disease, stage 3a; D63.1 Anemia in chronic kidney disease; G80.9 Cerebral palsy, unspecified; E04.2 Nontoxic multinodular goiter; R32 Unspecified urinary incontinence; E87.6 Hypokalemia; Z88.0 Allergy status to penicillin; Z79.899 Other long term (current) drug therapy; Z98.890 Other specified postprocedural states
CPT/HCPCS: 36415; 71045; 74177; 80053; 83605; 84145; 85025; 87040; 87077; 87081; 93005; 94760; 96365; 96367; J0692; J0696; J1644; J1956; J3490; Q9967

== ENCOUNTER 2024-09-10 00:01 | Emergency (ER) | payer MEDICARE, MEDICAID | END 2024-09-10 01:37 | disposition home or self-care (01) | LOC: ERS 00:01 | DX: K94.23 Gastrostomy malfunction (principal); I10 Essential (primary) hypertension | CPT/HCPCS: 43762; 74018 ==

== ENCOUNTER 2025-07-10 19:24 | Emergency (ER) | payer MEDICARE, MEDICAID | END 2025-07-10 21:23 | disposition home or self-care (01) | LOC: ERS 19:24 | DX: K94.23 Gastrostomy malfunction (principal); I10 Essential (primary) hypertension | CPT/HCPCS: 43762; 74018 ==